=== PATIENT | female | born 1990 | race Two or more races ===

== ENCOUNTER 2024-10-31 13:56 | Emergency (ER) | payer MEDICAID, SELFPAY ==
--- NOTE | 2024-10-31 14:07 | PD.EDRME ---
Rapid Medical Screening Exam [facility] Arrival date/time: 10/31/24 13:56 34-year-old female with no known medical history presents to the emergency room with a chief complaint of diarrhea x 4 days as well as bright red blood in the stool. I have greeted and performed a focused initial assessment of this patient. A comprehensive ED assessment and evaluation of the patient, analysis of all test results, and completion of the medical decision making process will be conducted by additional ED providers. Chief Complaint: Abdominal Pain Vital signs reviewed by provider: Yes
[2024-10-31 14:09] VITALS: BP 114/80; PULSE 106; RESP 16; TEMP 37.2; O2SAT 98; BMI 38.0
[2024-10-31 14:30] LABS: Basophils # (Auto) 0.1 Thou/mm3 (0.0-0.2); Basophils % (Auto) 1 % (0-2.5); Eosinophils # (Auto) 0.4 Thou/mm3 (0.0-0.5); Eosinophils % (Auto) 4 % (0-10); Hematocrit 37.6 % (36.0-46.0); Hemoglobin 12.9 g/dL (12.0-16.0); Immature Granulocytes % (Auto) 0 % (0-0); Immature Granulocytes Auto 0.02 Thou/mm3 (0.00-0.00); Lymphocytes # (Auto) 1.4 Thou/mm3 (1.0-4.8); Lymphocytes % (Auto) 17 % (10-50); Mean Corpuscular HGB Conc 34.3 g/dl (31.0-37.0); Mean Corpuscular Hemoglobin 28.2 pg (25.0-35.0); Mean Corpuscular Volume 82 fL (80-100); Monocytes % (Auto) 13 % (0-12); Neutrophils # (Auto) 5.3 Thou/mm3 (1.8-7.7); Neutrophils % (Auto) 65 % (37-80); Nucleated Red Blood Cell % 0 /100 WBC (0); Platelet Count 338 Thou/mm3 (140-440); RDW Standard Deviation 52.2 fL (36.4-46.3); Red Blood Count 4.58 Miln/mm3 (4.00-5.20); White Blood Count 8.1 Thou/mm3 (3.6-11.0)
[2024-10-31] MEDS: ONDANSETRON ODT 4 MG TABRAP PO (14:32)
[2024-10-31 14:53] LABS: Alanine Aminotransferase 49 U/L (10-49); Albumin, Serum 4.3 gm/dL (3.5-5.0); Albumin/Globulin Ratio 1.5 (1.2-2.2); Alkaline Phosphatase 95 U/L (46-116); Anion Gap 8 (7-16); Aspartate Amino Transferase 39 U/L (0-34); BUN/Creatinine Ratio 9 Ratio (12-20); Bilirubin,Total 0.2 mg/dL (0.3-1.2); Blood Urea Nitrogen 6 mg/dL (9-23); Calcium 9.3 mg/dL (8.3-10.6); Calcium (Corrected) 9.3 mg/dL (8.5-10.1); Carbon Dioxide 26.6 mMol/L (20.0-31.0); Chloride 106 mMol/L (98-107); Creatinine (Component) 0.7 mg/dL (0.6-1.3); Estimated Creatinine Clearance 93.5 mL/min (>60); Globulin 2.9 gm/dL (2.3-3.5); Glucose 99 mg/dL (74-106); Lipase 30 U/L (12-53); Osmolality,Calculated 278 (275-295); Potassium 3.6 mMol/L (3.4-5.1); Sodium 141 mMol/L (136-145); Total Protein 7.2 gm/dL (5.7-8.2); eGFR > 60 See Note
[2024-10-31 15:54] LABS: Collection Type, Urine Clean Catch
[2024-10-31 16:01] LABS: Bilirubin,Urine Negative (Negative); Blood,Urine Trace (Negative); Clarity,Urine Turbid (Clear/Hazy); Color,Urine Yellow (Lt Yel-Yel); Glucose, Urine Negative (Negative); Ketones,Urine Negative (Negative); Leukocyte Esterase,Urine Negative (Negative); Nitrite,Urine Negative (Negative); Protein,Urine 1+ (Neg - Trace); RBC,Urine 3 /hpf (0-3); Specific Gravity,Urine 1.028 (1.001-1.035); Squamous Epithelial Cell,Urine 11 /hpf (0-5); Urobilinogen,Urine Negative mg/dL (0.0-1.0); WBC,Urine 4 /hpf (0-5)
[2024-10-31 16:02] LABS: HCG Qualitative,Urine Negative
[2024-10-31 16:49] VITALS: BP 125/89; PULSE 94; RESP 16; TEMP 37.1; O2SAT 100
--- NOTE | 2024-10-31 17:16 | PD.EDADULT ---
ED General RME/HPI General Chief complaint: Abdominal Pain Stated complaint: ABDOMINAL PAIN WITH BLOODY STOOL Time Seen by Provider: 10/31/24 17:07 Arrival date/time: 10/31/24 13:56 CC: Nausea diarrhea onset 4 days ago now starting to have bright red blood in the stool. Patient also has mild epigastric pain OTC medicines taken denies any chest pain, chills shortness of breath. Patient states she had a fever of 101.4 previously. No recent antibiotics. No other complaints no other family members are ill. RME / HPI RME / HPI narrative: 10/31/24 13:56 34-year-old female with no known medical history presents to the emergency room with a chief complaint of diarrhea x 4 days as well as bright red blood in the stool. I have greeted and performed a focused initial assessment of this patient. A comprehensive ED assessment and evaluation of the patient, analysis of all test results, and completion of the medical decision making process will be conducted by additional ED providers. Related Data Home Medications ?Medication ?Instructions ?Recorded ?Confirmed cetirizine 10 mg tablet 1 tab PO DAILY 01/12/22 01/12/22 fluticasone propionate 110 2 puff inhalation BID 01/12/22 01/12/22 mcg/actuation HFA aerosol inhaler (Flovent HFA) levonorgestrel 0.15 mg-ethinyl 1 tab PO DAILY 01/12/22 01/12/22 estradiol 0.03 mg tablet Previous Rx's ?Medication ?Instructions ?Recorded tramadol 37.5 mg-acetaminophen 325 1 tab PO TID #15 tabs 01/13/22 mg tablet (Ultracet) ibuprofen 600 mg tablet (IBU) 600 mg PO TID PRN pain #30 tabs 02/22/23 ciprofloxacin HCl 500 mg tablet 500 mg PO BID #10 tabs 10/31/24 (Cipro) dicyclomine 20 mg tablet 20 mg PO BID #10 tabs 10/31/24 ondansetron 4 mg disintegrating 4 mg PO Q8H #10 tabs 10/31/24 tablet Allergies Allergy/AdvReac Type Severity Reaction Status Date / Time No Known Allergies Allergy Verified 10/31/24 14:01 Review of Systems Review of Systems Narrative Review of Systems: GEN: No fever, no chills, no weight loss EYES: No discharge, no visual changes, no pain HEENT: No ear pain, no congestion, no sore throat PULM: No shortness of breath, no cough, no congestion CV: No chest pain, no dyspnea on exertion, no palpitations GI: + nausea, no vomiting, + diarrhea, no pain, no constipation : No frequency, no urgency, no dysuria MUSC/SKEL: No joint pain, no back pain SKIN: No rash PSYCH: No hallucinations, no depression HEME/LYMPH: No easy bleeding or bruising tendencies NEURO: No weakness, no headache Past Medical History Past Medical History NEUROLOGIC: Positive Migraine CARDIAC: Negative Cardiac Disorders or Congestive Heart Failure RESPIRATORY: Negative Chronic Obstructive Pulmonary Disease (COPD) or Asthma GENITOURINARY: Negative Renal Disease ENDOCRINE: Negative Diabetes Mellitus Type 1 or Diabetes Mellitus Type 2 HEMATOLOGIC: Negative Sickle Cell Disease Surgical History SURGICAL: Positive Section Social History SMOKING STATUS: Never smoker SECOND HAND EXPOSURE: No SUBSTANCE USE: does not use ED Exam Narrative Physical exam: [General: Obese not in any acute distress Head normocephalic HEENT: Within acceptable limits Neck is supple nontender Chest equal chest rise nontender to palpation Respiratory: Clear to auscultation no wheezes crackles or rubs CV: Rate rhythm is regular no murmurs rubs or clicks Abdomen is distended secondary to body habitus soft, mild epigastric pain with tenderness no reflexive guarding no rebound tenderness. No masses positive bowel sounds all 4 quadrants Back: No CVA tenderness no spinous process tenderness from cervical spine thoracic and lumbar spine Skin: Intact no petechiae rash induration ulceration or crepitus Extremities: Moving all extremity against resistance cap refill less than 2 seconds neurosensory intact Neuro: Awake alert oriented x3 Glascow coma 15 no focal deficits] Course Quality Measures none Orders Category Date Time Status Occult Blood,Stool (Nursing) ONCE Care 10/31/24 14:07 Active CBC Stat Lab 10/31/24 14:24 Completed CMP [Comprehensive Metabolic Panel] Stat Lab 10/31/24 14:24 Completed HCG Qualitative,Urine Stat Lab 10/31/24 15:20 Completed Lipase Stat Lab 10/31/24 14:24 Completed UA [Urinalysis] Stat Lab 10/31/24 15:20 Completed Urine Culture Stat Lab 10/31/24 14:06 Received Ondansetron Odt [Zofran Odt] Med 10/31/24 14:06 Discontinued 4 mg PO X1 ONE Vital Signs Vital signs: Vital Signs Temperature 98.9 F 10/31/24 14:09 Pulse Rate 106 H 10/31/24 14:09 Respiratory Rate 16 10/31/24 14:09 Blood Pressure 114/80 10/31/24 14:09 Pulse Oximetry (%) 98 10/31/24 14:09 Oxygen Delivery Method Room Air 10/31/24 14:09 MDM Patient data External records reviewed:: [facility] previous records Clinical information provided by:: patient Social determinants that could affect healthcare access:: none Patient has the following chronic illnesses:: Obesity How is presenting disease/condition affected by chronic disease/condition?: uneffected by Evaluation data The following diagnostics were reviewed and interpreted by me:: lab results Lab and/or radiology exams considered but not ordered:: CBC shows no leukocytosis anemia thrombocytopenia CMP shows the patient has no significant electrolyte imbalances renal impairment transaminitis or T. bili elevation Urine is turbid 11 squamous epithelia. Lipase is negative Interpretation Summary: Given the patient's clinical presentation I suspect the patient has mild gastritis, the bleeding may be from a mild diverticulitis. Patient will be discharged home with several medications for treatment of the diverticulitis. Medications Medications considered but not ordered:: None Medication administrations:: Medication Administration History Discontinued Medications Ondansetron HCl (Ondansetron Odt 4 Mg Tabrap) 4 mg PO X1 ONE; Protocol Stop: 10/31/24 14:07 Last Admin: 10/31/24 14:32 Dose: 4 mg Documented By: None Consultations Consultation(s) initiated? (list below): No Diagnosis Differential Diagnosis ED Complaint MDM: Gastritis diverticulitis diverticulosis ileus Most likely diagnosis given after review of the tests above:: Gastritis/diverticulitis Admission Indicated Admission indicated?: not indicated Explain why admission is indicated or not indicated:: Stable for outpatient follow-up Admission Request Was there a request for admission?: No Disposition Plan Disposition Plan: Discharge Discharge Attestation Discharge Attestation: The patient and all family members were given an opportunity to ask questions and understood the discharge instructions. Discharge instructions specifically effects, indications for sooner follow up or return to the emergency department, and the expected course of current diagnosis. Patient condition: Stable Medical Decision Making Differential Diagnosis Differential Diagnosis: Gastritis diverticulitis diverticulosis ileus Lab Data 10/31/24 14:24 10/31/24 14:24 Labs: Lab Results 10/31/24 10/31/24 Range/Units 14:24 15:20 WBC 8.1 (3.6-11.0) Thou/mm3 RBC 4.58 (4.00-5.20) Miln/mm3 Hgb 12.9 (12.0-16.0) g/dL Hct 37.6 (36.0-46.0) % MCV 82 (80-100) fL MCH 28.2 (25.0-35.0) pg MCHC 34.3 (31.0-37.0) g/dl RDW Std Deviation 52.2 H (36.4-46.3) fL Plt Count 338 (140-440) Thou/mm3 Neut % (Auto) 65 (37-80) % Lymph % (Auto) 17 (10-50) % [place]mullen % (Auto) 13 H (0-12) % Eos % (Auto) 4 (0-10) % Baso % (Auto) 1 (0-2.5) % Neut # (Auto) 5.3 (1.8-7.7) Thou/mm3 Lymph # (Auto) 1.4 (1.0-4.8) Thou/mm3 [place]ullen # (Auto) 1.0 H (0.0-0.8) Thou/mm3 Eos # (Auto) 0.4 (0.0-0.5) Thou/mm3 Baso # (Auto) 0.1 (0.0-0.2) Thou/mm3 Immature Gran # (Auto) 0.02 H (0.00-0.00) Thou/mm3 Absolute Nucleated RBC 0.00 (0.00-0.00) Thou/mm3 Immature Gran % 0 (0-0) % Nucleated RBC % 0 (0) /100 WBC Sodium 141 (136-145) mMol/L Potassium 3.6 (3.4-5.1) mMol/L Chloride 106 (98-107) mMol/L Carbon Dioxide 26.6 (20.0-31.0) mMol/L Anion Gap 8 (7-16) BUN 6 L (9-23) mg/dL Creatinine 0.7 (0.6-1.3) mg/dL Estim Creat Clear Calc 93.5 (>60) mL/min eGFR > 60 (60 - ) See Note BUN/Creatinine Ratio 9 L (12-20) Ratio Glucose 99 (74-106) mg/dL Calculated Osmolality 278 (275-295) Calcium 9.3 (8.3-10.6) mg/dL Corrected Calcium 9.3 (8.5-10.1) mg/dL Total Bilirubin 0.2 L (0.3-1.2) mg/dL AST 39 H (0-34) U/L ALT 49 (10-49) U/L Alkaline Phosphatase 95 (46-116) U/L Total Protein 7.2 (5.7-8.2) gm/dL Albumin 4.3 (3.5-5.0) gm/dL Globulin 2.9 (2.3-3.5) gm/dL Albumin/Globulin Ratio 1.5 (1.2-2.2) Lipase 30 (12-53) U/L Ur Collection Type Clean Catch Urine Color Yellow (Lt Yel-Yel) Urine Clarity Turbid A (Clear/Hazy) Urine pH 6.0 (5.0-7.0) Ur Specific [place] 1.028 (1.001-1.035) Urine Protein 1+ A (Neg - Trace) Urine Glucose (UA) Negative (Negative) Urine Ketones Negative (Negative) Urine Blood Trace (Negative) Urine Nitrite Negative (Negative) Urine Bilirubin Negative (Negative) Urine Urobilinogen (Auto) Negative (0.0-1.0) mg/dL Ur Leukocyte Esterase Negative (Negative) Urine RBC 3 (0-3) /hpf Urine WBC 4 (0-5) /hpf Ur Squamous Epith Cells 11 H (0-5) /hpf Urine Bacteria None (None) Urine HCG, Qual Negative Discharge Plan Plan Patient Disposition: HOME (Self Care) Patient condition on transfer: Stable Prescriptions/Referrals Prescriptions/Med Rec: New ondansetron 4 mg tablet,disintegrating 4 mg PO Q8H Qty: 10 0RF dicyclomine 20 mg tablet 20 mg PO BID Qty: 10 0RF ciprofloxacin HCl [Cipro] 500 mg tablet 500 mg PO BID Qty: 10 0RF No Action levonorgestrel-ethinyl estrad 0.15-0.03 mg tablet 1 tab PO DAILY Patient Comments: take 1 tablet by mouth once daily fluticasone propionate [Flovent HFA] 110 mcg/actuation HFA aerosol inhaler 2 puff INHALATION BID Patient Comments: inhale 2 puffs by mouth and INTO THE LUNGS twice a day cetirizine 10 mg tablet 1 tab PO DAILY Patient Comments: take 1 tablet by mouth once daily tramadol-acetaminophen [Ultracet] 37.5-325 mg tablet 1 tab PO TID Qty: 15 0RF ibuprofen [IBU] 600 mg tablet 600 mg PO TID PRN (Reason: pain) Qty: 30 0RF Referrals: Scooby Gutierrez MD [Primary Care Provider] - In 1 week Problem List Clinical Impression: Diarrhea, Abdominal pain, Nausea Patient/Caregiver Discharge Instructions Other Activity Instructions:: I suspect diverticulitis please take the medications as prescribed a bland diet follow-up with your primary care doctor if there is worsening of symptoms spite of medications return the emergency room medially for further evaluation. Education Materials: Abdominal Pain, ED Diet, [place] (Adult), ED Diarrhea, Unknown Cause Print Language: Danish Stand Alone Forms: Trixie Award Info., Patient Portal Info Letter, Work/School Release PA/AIRPLANE ENGINEER Supervising Physician ANNAMARIE/AIRPLANE ENGINEER Supervising Physician: Tacos Yap ENP
== END 2024-10-31 17:31 | disposition home or self-care (01) ==
PROVIDERS: Nurse Practitioner Family; Emergency Provider Family Medicine; PCP Family Medicine
DX: R10.13 Epigastric pain (principal); R19.7 Diarrhea, unspecified; R11.0 Nausea
CPT/HCPCS: 36415; 80053; 81001; 81025; 83690; 85025; 87086; 99283; Q0162

== ENCOUNTER 2024-12-01 09:25 | Day surgery (SDC) | payer MEDICAID, SELFPAY ==
[2024-11-30 07:10] VITALS: BMI 39.6
[2024-11-30 09:27] LABS: Basophils # (Auto) 0.1 Thou/mm3 (0.0-0.2); Basophils % (Auto) 1 % (0-2.5); Eosinophils # (Auto) 0.4 Thou/mm3 (0.0-0.5); Eosinophils % (Auto) 5 % (0-10); Hematocrit 35.6 % (36.0-46.0); Hemoglobin 11.9 g/dL (12.0-16.0); Immature Granulocytes % (Auto) 0 % (0-0); Immature Granulocytes Auto 0.02 Thou/mm3 (0.00-0.00); Lymphocytes # (Auto) 1.7 Thou/mm3 (1.0-4.8); Lymphocytes % (Auto) 19 % (10-50); Mean Corpuscular HGB Conc 33.4 g/dl (31.0-37.0); Mean Corpuscular Hemoglobin 29.2 pg (25.0-35.0); Mean Corpuscular Volume 88 fL (80-100); Monocytes # (Auto) 0.5 Thou/mm3 (0.0-0.8); Monocytes % (Auto) 5 % (0-12); Neutrophils % (Auto) 69 % (37-80); Nucleated Red Blood Cell % 0 /100 WBC (0); Platelet Count 338 Thou/mm3 (140-440); RDW Standard Deviation 48.7 fL (36.4-46.3); Red Blood Count 4.07 Miln/mm3 (4.00-5.20); White Blood Count 8.7 Thou/mm3 (3.6-11.0)
[2024-11-30 10:03] LABS: Beta HCG,Quantitative < 1 mIU/mL (<5.0)
[2024-11-30 10:10] LABS: Hepatitis A Antibody IgM Non Reactive (Non React); Hepatitis B Core Antibody IgM Non Reactive (Non React); Hepatitis B Surface Antigen Non Reactive (Non React); Hepatitis C Antibody Non Reactive (Non React)
[2024-11-30 11:12] LABS: HIV (1&2) Antibody Rapid Non-Reactive
--- NOTE | 2024-11-30 14:45 | SUR.PREOP ---
Voice message left for pt to come in at 0930 tomorrow.
[2024-12-01] VITALS (7 sets, daily range): BP systolic 116–127; BP diastolic 65–89; PULSE 65–77; RESP 12–20; TEMP 36.2–36.8; O2SAT 98–100; BMI 35.6
--- NOTE | 2024-12-01 08:51 | PD.GYNHP ---
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 SON is a 34 year old female para 1 previous is admitted for a diagnostic hysteroscopy related to her abnormal uterine bleeding starting after the . Patient had an ultrasound which showed a small fibroid however there were no other abnormalities found patient also is desiring a and has been unable to conceive so does not want to take any hormonal contraception at this point to decrease the abnormal uterine bleeding. Diagnosis hysteroscopy was planned in anticipation of finding endometrial polyp which could contribute to her abnormal and heavy menses. Meds Home Medications and Allergies Home Medications ?Medication ?Instructions ?Recorded ?Confirmed ?Type albuterol sulfate 90 mcg/actuation 2 puff inhalation Q4H PRN 11/30/24 11/30/24 History aerosol inhaler shortness of breath or wheezing azelastine 137 mcg (0.1 %) nasal 2 spray intranasal Q12H 11/30/24 11/30/24 History spray montelukast 10 mg tablet 10 mg PO HS 11/30/24 11/30/24 History omeprazole 40 mg capsule,delayed 40 mg PO DAILY 11/30/24 11/30/24 History release prednisone 20 mg tablet 20 mg PO DAILY 11/30/24 11/30/24 History Allergies Allergy/AdvReac Type Severity Reaction Status Date / Time No Known Allergies Allergy Verified 11/30/24 07:11 Exam - 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 INSTRUCTOR Constitutional Constitutional: no acute distress Routine HEENT Exam Head: Present normocephalic and atraumatic Eye: Present EOMI and PERRL ENT: Present mucous membranes moist Routine Neck Exam Neck: Present supple and trachea midline Routine Respiratory Exam Respiratory: Present chest non-tender, lungs clear, normal breath sounds and no resp distress Routine Cardiovascular Exam Cardiovascular: Present RRR Routine Abdominal Exam Abdominal: Present soft and normoactive bowel sounds Routine Extremities Exam Extremities: Present full ROM Routine Skin Exam Skin: Present intact and dry Routine Neurological Exam Neurological: Present alert, oriented X3 and CN II-XII intact Routine Psychiatric Exam Psychiatric: Present normal affect and normal thought process ADJUNCT POLITICAL SCIENCE INSTRUCTOR - Results Labs 11/30/24 07:35 Labs: Short CBC 11/30/24 Range/Units 07:35 WBC 8.7 (3.6-11.0) Thou/mm3 Hgb 11.9 L (12.0-16.0) g/dL Hct 35.6 L (36.0-46.0) % Plt Count 338 (140-440) Thou/mm3 Impressions Impression: 34-year-old para 1 admitted for diagnostic hysteroscopy for abnormal uterine bleeding Ultrasound normal Quality Measures Quality Measures VTE prophylaxis
[2024-12-01] MEDS: RINGERS LACTATED 1000 ML 1,000 ML 20 ML IV (10:05)
--- NOTE | 2024-12-01 10:50 | PD.GYNPROC ---
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 The potential benefits and risks of the procedure, the likelihood of success, and the problems related to recuperation have been discussed with patient who agrees to proceed. The possible results of nontreatment and significant alternatives to the proposed procedure have also been explained, along with the risks and benefits of the alternatives. Risks and benefits of chosen anesthetic/sedation and possible use of blood/blood products (if appropriate) were discussed.The patient was identified as Usha Reyes and the procedure verified. A time out was held reviewing the patient identifiers, procedure planned and allergies. At this point the procedure was begun. The patient was positioned and prepped in routine fashion in the dorsal lithotomy position using yellowfin stirups. On examination under anesthesia,the uterus was retroverted to a normal size. Bladder was drained by catheter. A weighted speculum was then placed into the patient's posterior vagina. A rick was used to expose the anterior lip of the cervix which was then grasped by a single tooth tenaculum.The cervix was then very easily dilated to a size 6 Hegar dilator. The hysteroscope was then placed under direct visualization. Warm lactated Ringer's was used as a distention medium. The patient's uterus was found to have a normal endometrial cavity with normal bilateral ostia visible . pictures were taken. Hysteroscope was removed from the cavity. There was minimal bleeding noted and tenaculum was removed. Hemostasis was acheived with a ringed forcep on the anterior cervix. Surgical staff Operation Date: 12/01/24 11:45 <No data on this case meets the specified criteria> Diagnosis Problem List Completed Was Problem List Reviewed/Reconciled?: Yes
--- NOTE | 2024-12-01 10:57 | SUR.PHASEI ---
1057 Patient arrived to recovery resting comfortably in [facility], on oxygen 8L via oxy mask, breathing unlabored, vital signs stable, denies pain and nausea, report received from Geo BREWER/Jen ABDALLA and Alpesh NOGUERA
--- NOTE | 2024-12-01 11:58 | SUR.PHASEII ---
1158 Patient meets discharge criteria from recovery, awake and alert-talking with staff, breathing unlabored, vital signs stable, denies pain, voided in the restroom prior to discharge, denies nausea-eating ice chips; tolerating well, discharge instructions given to patient and patients mother with the assistance of the telephone lathe machine operator Kierra ID#[id number], mother signed discharge instructions. Patient given all her belongings prior to discharge, transported via wheelchair and left in a private vehicle.
== END 2024-12-01 11:58 | disposition home or self-care (01) ==
PROVIDERS: PCP Family Medicine; Referring Provider Student in an Organized Health Care Education/Training Program; Visit Provider Student in an Organized Health Care Education/Training Program
PROC: (CPT 49320; principal; 2024-12-01 11:30)
DX: N92.0 Excessive and frequent menstruation with regular cycle (principal)
CPT/HCPCS: 58555; 36415; 80074; 84702; 85025; 86703; 86850; 86900; 86901; A4217; A4649; J0131; J1100; J2250; J2405; J2704; J3010; J3490; J7120

== ENCOUNTER 2025-01-09 16:38 | Emergency (ER) | payer MEDICAID, SELFPAY ==
[2025-01-09 16:56] VITALS: BP 117/81; PULSE 74; RESP 18; TEMP 36.8; O2SAT 99; BMI 34.0
--- NOTE | 2025-01-09 17:27 | EDNOTE_ITS ---
ED General RME/HPI General Chief complaint: General Adult/Misc Complain Stated complaint: SWOLLEN LABIA X 3 DAYS; HURTS TO WALK/SIT Time Seen by Provider: 01/09/25 17:05 Arrival date/time: 01/09/25 16:38 RME / HPI RME / HPI narrative: 34-year-old female presents to the ED with a complaint of bilateral labial swelling for the past 3 days. It started with right lower extremity pain, she thought her underwear were too tight. Last night she felt feverish and chilled. She went to [facility] yesterday and was told there was nothing wrong. Related Data Home Medications ?Medication ?Instructions ?Recorded ?Confirmed albuterol sulfate 90 mcg/actuation 2 puff inhalation Q 4H PRN 11/30/24 12/01/24 aerosol inhaler shortness of breath or wheez ing azelastine 137 mcg (0.1 %) nasal 2 spray intranasal Q1 2H 11/30/24 12/01/24 spray montelukast 10 mg tablet 10 mg PO HS 11/30/24 5 omeprazole 40 mg capsule,delayed 40 mg PO DAILY 11/30/24 release prednisone 20 mg tablet 20 mg PO DAILY 11/30/2402/18 Previous Rx's ?Medication ?Instructions ?Recorded amoxicillin 875 mg tablet 875 mg PO BID #20 tabs 01/09 benzocaine 5 %-resorcinol 2 % 1 applic topical TID PRN skin 01/09/25 topical cream (Vagisil) irritation #28 grams hydrocortisone 1 % topical cream 1 applic topical TID PRN skin 01/09/25 irritation #28.4 grams Allergies Allergy/AdvReac Type Severity Reaction Status Date / Time No Known Allergies Allergy Verified 01/09/25 16:44 Review of Systems Review of Systems Systems Reviewed: All systems reviewed, normal except as documented Past Medical History Past Medical History NEUROLOGIC: Positive Neurological Disorders and Migraine; Negative Seizures CARDIAC: Negative Cardiac Disorders or Congestive Heart Failure RESPIRATORY: Positive Asthma; Negative Chronic Obstructive Pulmonary Disease (COPD) GASTROINTESTINAL: Positive Gastrointestinal Disorders and Obesity; Negative Hepatitis GENITOURINARY: Negative Genitourinary Disorders or Renal Disease REPRODUCTIVE: Positive Previous Pregnancies MUSCULOSKELETAL: Negative Musculoskeletal Disorders ENDOCRINE: Negative Endocrine Disorders, Diabetes Mellitus Type 1 or Diabetes Mellitus Type 2 HEMATOLOGIC: Positive Blood Disorders and Anemia; Negative Sickle Cell Disease OTHER HISTORY: Positive Blood Transfusions; Negative Hospitalization, Autoimmune Disease, Shingles, Falls, Blood Transfusion Reaction, Anesthesia Reactions or Cancer Family History FAMILY HISTORY: Negative Family Psychiatric Problems, Family Respiratory Disorders, Family Cardiac Disorders, Family Gastrointestinal Problems, Family Cancer, Family Surgery or Family Anesthesia Reaction Surgical History SURGICAL: Positive Section (x1) Social History SMOKING STATUS: Never smoker SECOND HAND EXPOSURE: No SUBSTANCE USE: does not use ED Exam Narrative Physical exam: 34-year-old female, no acute distress. Lungs are clear, regular rate and rhythm without murmurs, abdomen is soft and nontender. No CVA tenderness. Pelvic exam with orthodontic technician assistant present reveals mild swelling to the left upper labia. No Bartholin's abscess noted. No erythema or cellulitis noted. Mild left greater saphenous vein tenderness extending to the left inguinal area. Course Course Course Narrative: Patient was given Toradol 30 mg IM. Venous duplex of the bilateral lower extremities obtained and revealed: Negative for acute deep vein thrombosis , per radiologist. Patient was given her first dose of Augmentin 875 mg p.o. Quality Measures none Orders Category Date Time Status US venous duplex LE BI Stat Exams 01/09/25 18:26 Completed Amoxicillin/Pot Clav 875 [Augmentin 875] Med 01/09/25 21:18 Discontinued 1 tab PO X1 ONE Ketorolac Inj [Toradol Inj] Med 01/09/25 18:26 Discontinued 30 mg IM X1 ONE Vital Signs Vital signs: Vital Signs Temperature 98.3 F 01/09/25 16:56 Pulse Rate 74 01/09/25 16:56 Respiratory Rate 18 01/09/25 16:56 Blood Pressure 117/81 01/09/25 16:56 Pulse Oximetry (%) 99 01/09/25 16:56 Oxygen Delivery Method Room Air 01/09/25 16:56 Discharge Plan Plan Patient Disposition: HOME (Self Care) Discharge Disposition comment: Stable Prescriptions/Referrals Prescriptions/Med Rec: New amoxicillin 875 mg tablet 875 mg PO BID Qty: 20 0RF hydrocortisone 1 % cream 1 applic topical TID PRN (Reason: skin irritation) Qty: 28.4 0RF Vagisil 5-2 % cream 1 applic topical TID PRN (Reason: skin irritation) Qty: 28 0RF No Action omeprazole 40 mg capsule,delayed release(DR/EC) 40 mg PO DAILY Patient Comments: take 1 capsule by mouth every morning prednisone 20 mg tablet 20 mg PO DAILY Patient Comments: take 2 tablets by mouth every morning montelukast 10 mg tablet 10 mg PO HS Patient Comments: take 1 tablet by mouth every evening azelastine 137 mcg (0.1 %) spray,non-aerosol 2 spray INTRANASAL Q12H Patient Comments: instill 2 sprays into each nostril twice a day albuterol sulfate 90 mcg/actuation HFA aerosol inhaler 2 puff INHALATION Q4H PRN (Reason: shortness of breath or wheezing) Patient Comments: inhale 2 puffs by mouth and INTO THE LUNGS every 4 hours if needed Referrals: Scooby Gutierrez MD [Primary Care Provider] - In 1 week Problem List Clinical Impression: Labial irritation, Labial hypertrophy, Inguinal lymphadenopathy Patient/Caregiver Discharge Instructions Education Materials: Lymphadenopathy Additional Instructions: [place] los antibioticos hill lo prescrito y complete elcurso a pesar de que puede sentirse major. Sheeren un seguimiento con hu medico de atencion primaria en 24 a 48 horas. Regresar al departamento de emergencias por cualquier sintoma nuevo o que empeore. Print Language: Jordanian Stand Alone Forms: Trixie Award Info., Patient Portal Info Letter PA/HEATING FIXTURE TENDER Supervising Physician PA/CAM Supervising Physician: Dr Therese CHAN Narrative [facility] hospital course: 34-year-old female presents to the ED with a complaint of bilateral labial swelling for the past 3 days. It started with right lower extremity pain, she thought her underwear were too tight. Last night she felt feverish and chilled. She went to [facility] yesterday and was told there was nothing wrong. 34-year-old female, no acute distress. Lungs are clear, regular rate and rhythm without murmurs, abdomen is soft and nontender. No CVA tenderness. Pelvic exam with orthodontic technician assistant present reveals mild swelling to the left upper labia. No Bartholin's abscess noted. No erythema or cellulitis noted. Mild left greater saphenous vein tenderness extending to the left inguinal area. Patient was given Toradol 30 mg IM. Venous duplex of the bilateral lower extremities obtained and revealed: Negative for acute deep vein thrombosis , per radiologist. Patient was given her first dose of Augmentin 875 mg p.o. Procedures done or offered: Venous duplex bilateral lower extremities. Clinical Information Provided by patient Medical Records Reviewed [facility] Meds/Rx Considered, not Ordered None Labs/Rad/Tests considered, not Ordered None Chronic Illness/Social Conditions which may negatively complicate care or outcome(s)-explain: None or not applicable EKG EKG not done Lab Interpretation Labs: none Imaging Imaging interpretation: see narrative above Provider imaging interpretation(s): Venous duplex lower extremity sonogram bilateral: Findings deep venous systems do not demonstrate abnormal echogenicity. All visualized deep veins exhibit compressibility and augmentation. Impression: Negative for deep vein thrombosis. Radiology reports / interpretation(s): As above Medication Administration(s) Medication Administration History Discontinued Medications Amoxicillin/Clavulanate Potassium (Amoxicillin/Pot Clav 875 Tablet) 1 tab PO X1 ONE Stop: 01/09/25 21:19 Last Admin: 01/09/25 21:34 Dose: 1 tab Documented By: ANN Ketorolac Tromethamine (Ketorolac Inj 60 Mg/2 Ml Vial) 30 mg IM X1 ONE Stop: 01/09/25 18:27 Last Admin: 01/09/25 18:50 Dose: 30 mg Documented By: ANN Toradol 30 mg IM and Augmentin 875 mg p.o. Diagnosis Differential diagnosis: Bartholin gland cyst, labial inflammation, inguinal adenitis, LE DVT Differential dx and/or dx ruled out: Negative Bartholin gland cyst, lower extremity DVT Most likely dx, and/or detailed dx discussion: Labial inflammation Dispositon Disposition: Discharge Home Disposition comments: Patient is stable for discharge
--- NOTE | 2025-01-09 18:26 | XR_ITS ---
Examination: Venous duplex lower extremity sonogram, bilateral. Date and time of exam: January 09, 2025 2000 hours INDICATIONS: Right leg swelling and pain beginning 3 days ago Technique: Multiple sonographic images of the deep venous system have been obtained. B-mode/2-D grayscale imaging of vascular structures and Doppler spectral analysis (waveforms) and color performed Both legs are examined. Findings: Deep venous systems do not demonstrate abnormal echogenicity. All visualized deep veins exhibit compressibility. All visualized deep veins exhibit augmentation. Impression: Negative for deep vein thrombosis
[2025-01-09] MEDS: KETOROLAC INJ 60 MG/2 ML VIAL 30 MG IM (18:50)
[2025-01-09] MEDS: AMOXICILLIN/POT CLAV 875 TABLET 1 TAB PO (21:34)
[2025-01-09 21:36] VITALS: BP 120/78; PULSE 78; RESP 18; TEMP 36.8; O2SAT 98
== END 2025-01-09 21:38 | disposition home or self-care (01) ==
PROVIDERS: Emergency Provider Family Medicine; PCP Family Medicine
DX: N90.60 Unspecified hypertrophy of vulva (principal); R59.0 Localized enlarged lymph nodes; M79.89 Other specified soft tissue disorders; M79.661 Pain in right lower leg
CPT/HCPCS: 93970; 96372; 99284; J1885; A9270

== ENCOUNTER 2025-06-05 20:45 | Emergency (ER) | payer MEDICAID, SELFPAY ==
[2025-06-05 21:35] VITALS: BP 124/81; PULSE 96; RESP 20; TEMP 36.9; O2SAT 100
--- NOTE | 2025-06-05 21:41 | XR_ITS ---
Examination: Transvaginal ultrasound of the pelvis, complete Technique: Transvaginal sonographic images pelvis performed using sanchez scale imaging Exam date and time: June 05, 2025 1050 hours INDICATIONS: Vaginal bleeding episodes beginning 2 months ago FINDINGS: Uterus 8.8 cm endometrial stripe 0.6 cm 14 x 15 mm uterine area fibroid degeneration, right uterine body area fibroid degeneration 15 x 16 mm Ovaries obscured by bowel gas IMPRESSION: Small areas of uterine fibroid degeneration, 6-month follow-up pelvic sonography recommended.
--- NOTE | 2025-06-05 21:42 | PD.EDRME ---
Rapid Medical Screening Exam RME Arrival date/time: 06/05/25 20:45 This is a case of 34-year-old female came into the emergency room due to vaginal bleeding and pelvic cramping for 2 days persistence of the symptoms this patient decided to start consult here in the emergency room Chief Complaint: Vaginal Bleeding Time Seen by Provider: 06/05/25 21:41 Vital signs: Vital Signs Temperature 98.4 F 06/05/25 21:35 Pulse Rate 96 06/05/25 21:35 Respiratory Rate 20 06/05/25 21:35 Blood Pressure 124/81 06/05/25 21:35 Pulse Oximetry (%) 100 06/05/25 21:35 Oxygen Delivery Method Room Air 06/05/25 21:35 Exam: Pelvic exam normal Clinical Impression: Vaginal bleeding
[2025-06-05 22:40] LABS: Basophils # (Auto) 0.1 Thou/mm3 (0.0-0.2); Basophils % (Auto) 1 % (0-2.5); Eosinophils # (Auto) 0.3 Thou/mm3 (0.0-0.5); Eosinophils % (Auto) 3 % (0-10); Hematocrit 27.4 % (36.0-46.0); Immature Granulocytes Auto 0.02 Thou/mm3 (0.00-0.00); Lymphocytes # (Auto) 1.9 Thou/mm3 (1.0-4.8); Lymphocytes % (Auto) 24 % (10-50); Mean Corpuscular HGB Conc 31.4 g/dl (31.0-37.0); Mean Corpuscular Hemoglobin 25.8 pg (25.0-35.0); Mean Corpuscular Volume 82 fL (80-100); Monocytes # (Auto) 0.8 Thou/mm3 (0.0-0.8); Monocytes % (Auto) 10 % (0-12); Neutrophils # (Auto) 5.0 Thou/mm3 (1.8-7.7); Neutrophils % (Auto) 62 % (37-80); Nucleated Red Blood Cell # 0.00 Thou/mm3 (0.00-0.00); Nucleated Red Blood Cell % 0 /100 WBC (0); Platelet Count 382 Thou/mm3 (140-440); RDW Standard Deviation 42.9 fL (36.4-46.3); Red Blood Count 3.33 Miln/mm3 (4.00-5.20); White Blood Count 8.0 Thou/mm3 (3.6-11.0)
[2025-06-05 23:02] LABS: Alanine Aminotransferase 42 U/L (10-49); Albumin, Serum 4.5 gm/dL (3.5-5.0); Albumin/Globulin Ratio 2.0 (1.2-2.2); Alkaline Phosphatase 98 U/L (46-116); Anion Gap 7 (7-16); Aspartate Amino Transferase 54 U/L (0-34); BUN/Creatinine Ratio 13 Ratio (12-20); Beta HCG,Quantitative < 1 mIU/mL (<5.0); Bilirubin,Total 0.2 mg/dL (0.3-1.2); Blood Urea Nitrogen 9 mg/dL (9-23); Calcium 8.9 mg/dL (8.3-10.6); Calcium (Corrected) 8.9 mg/dL (8.5-10.1); Carbon Dioxide 27.4 mMol/L (20.0-31.0); Chloride 107 mMol/L (98-107); Creatinine (Component) 0.7 mg/dL (0.6-1.3); Globulin 2.2 gm/dL (2.3-3.5); Glucose 100 mg/dL (74-106); Osmolality,Calculated 279 (275-295); Potassium 3.5 mMol/L (3.4-5.1); Sodium 141 mMol/L (136-145); Total Protein 6.7 gm/dL (5.7-8.2); eGFR > 60 See Note
[2025-06-05 23:08] LABS: Hemoglobin 8.6 g/dL (12.0-16.0)
[2025-06-05 23:35] VITALS: BP 125/86; PULSE 75; RESP 16; TEMP 36.8; O2SAT 100
[2025-06-06 01:53] LABS: Collection Type, Urine Voided
[2025-06-06 02:00] VITALS: BP 118/83; PULSE 79; RESP 16; TEMP 37.2; O2SAT 100
[2025-06-06 02:06] LABS: Bilirubin,Urine Negative (Negative); Blood,Urine 3+ (Negative); Clarity,Urine Clear (Clear/Hazy); Color,Urine Colorless (Lt Yel-Yel); Glucose, Urine Negative (Negative); Ketones,Urine Negative (Negative); Leukocyte Esterase,Urine Negative (Negative); Nitrite,Urine Negative (Negative); PH,Urine 6.5 (5.0-7.0); Protein,Urine Negative (Neg - Trace); RBC,Urine 1 /hpf (0-3); Specific Gravity,Urine 1.005 (1.001-1.035); Squamous Epithelial Cell,Urine < 1 /hpf (0-5); Urobilinogen,Urine Negative mg/dL (0.0-1.0); WBC,Urine < 1 /hpf (0-5)
--- NOTE | 2025-06-06 02:13 | PD.EDVAGBL ---
ED OB Contraction Preg RMI/HPI General Chief complaint: Vaginal Bleeding Stated complaint: BODYACHE, FATIGUE, CRAMPING TO R. LEG, VAG BLEED Time Seen by Provider: 06/05/25 21:41 Arrival date/time: 06/05/25 20:45 RME / HPI RME / HPI Narrative: 06/05/25 20:45 This is a case of 34-year-old female came into the emergency room due to vaginal bleeding and pelvic cramping for 2 days persistence of the symptoms this patient decided to start consult here in the emergency room Dr. Bailon?s Main ED Evaluation: 34yo female with a history of menstrual irregularity presenting with intermittent vaginal bleeding x 2-3 months. Patient reports using up to 4 pads per day and has associated abdominal cramping. Reports occasional blood clots. She recently finished prescribed course of Provera. PMH unremarkable. PSH includes . Unremarkable social history. NKA. Related Data Home Medications ?Medication ?Instructions ?Recorded ?Confirmed albuterol sulfate 90 mcg/actuation 2 puff inhalation Q4H PRN 11/30/24 12/01/24 aerosol inhaler shortness of breath or wheezing azelastine 137 mcg (0.1 %) nasal 2 spray intranasal Q12H 11/30/24 12/01/24 spray montelukast 10 mg tablet 10 mg PO HS 11/30/24 12/01/24 omeprazole 40 mg capsule,delayed 40 mg PO DAILY 11/30/24 11/30/24 release prednisone 20 mg tablet 20 mg PO DAILY 11/30/24 12/01/24 Previous Rx's ?Medication ?Instructions ?Recorded amoxicillin 875 mg tablet 875 mg PO BID #20 tabs 01/09/25 benzocaine 5 %-resorcinol 2 % 1 applic topical TID PRN skin 01/09/25 topical cream (Vagisil) irritation #28 grams hydrocortisone 1 % topical cream 1 applic topical TID PRN skin 01/09/25 irritation #28.4 grams docusate sodium 100 mg capsule 100 mg PO BID #30 caps 06/06/25 (Colace) ferrous sulfate 325 mg (65 mg 325 mg PO BID #60 tabs 06/06/25 iron) tablet (Feosol) Allergies Allergy/AdvReac Type Severity Reaction Status Date / Time No Known Allergies Allergy Verified 06/05/25 20:47 Review of Systems Review of Systems Systems Reviewed: All systems reviewed, normal except as documented Past Medical History Past Medical History NEUROLOGIC: Positive Neurological Disorders and Migraine; Negative Seizures CARDIAC: Negative Cardiac Disorders or Congestive Heart Failure RESPIRATORY: Positive Asthma; Negative Chronic Obstructive Pulmonary Disease (COPD) GASTROINTESTINAL: Positive Gastrointestinal Disorders and Obesity; Negative Hepatitis GENITOURINARY: Negative Genitourinary Disorders or Renal Disease REPRODUCTIVE: Positive Previous Pregnancies MUSCULOSKELETAL: Negative Musculoskeletal Disorders ENDOCRINE: Negative Endocrine Disorders, Diabetes Mellitus Type 1 or Diabetes Mellitus Type 2 HEMATOLOGIC: Positive Blood Disorders and Anemia; Negative Sickle Cell Disease OTHER HISTORY: Positive Blood Transfusions; Negative Hospitalization, Autoimmune Disease, Shingles, Falls, Blood Transfusion Reaction, Anesthesia Reactions or Cancer Family History FAMILY HISTORY: Negative Family Psychiatric Problems, Family Respiratory Disorders, Family Cardiac Disorders, Family Gastrointestinal Problems, Family Cancer, Family Surgery or Family Anesthesia Reaction Surgical History SURGICAL: Positive Section Social History SMOKING STATUS: Never smoker SECOND HAND EXPOSURE: No SUBSTANCE USE: does not use ED Exam Narrative Physical exam: GENERAL APPEARANCE: alert and oriented x 4, well-developed, well-nourished, complains of mild lower pelvic pain, no acute distress VITALS: All vitals were reviewed and the pulse ox is 100% on room air, which is normal according to my interpretation. HEENT: Normocephalic, atraumatic; pupils equal, round, reactive to light; EOMI; mucous membranes pink, moist; oropharynx clear NECK: Supple LUNGS: CTABL; no wheezes, no rales, no rhonchi HEART: Regular rate, regular rhythm; normal S1, S2; no murmurs ABDOMEN: non distended; soft, no tenderness EXTREMITIES: atraumatic; no edema NEUROLOGIC: awake; alert and oriented x4; cranial nerves II-XII grossly intact; no focal sensory or motor deficits PSYCHIATRIC: appropriate mood and affect SKIN: warm, dry, normal color; no rashes Course Quality Measures none Orders Category Date Time Status US transvaginal Stat Exams 06/05/25 21:41 Completed ABO/RH Type Stat Lab 06/05/25 22:30 Completed Beta HCG,Quantitative Stat Lab 06/05/25 22:30 Completed CBC Stat Lab 06/05/25 22:30 Completed CMP [Comprehensive Metabolic Panel] Stat Lab 06/05/25 22:30 Completed Urinalysis Stat Lab 06/06/25 00:58 Completed Vital Signs Vital signs: Vital Signs Temperature 98.4 F 06/05/25 21:35 Pulse Rate 96 06/05/25 21:35 Respiratory Rate 20 06/05/25 21:35 Blood Pressure 124/81 06/05/25 21:35 Pulse Oximetry (%) 100 06/05/25 21:35 Oxygen Delivery Method Room Air 06/05/25 21:35 Vaginal Bleeding MDM Narrative MDM Narrative: Scribe Attestation: 06/06/25 - Jennifer Saavedra am scribing for and in the presence of Dr. Bailon. 34yo female with a history of menstrual irregularity presenting with intermittent vaginal bleeding x 2-3 months. Patient reports using up to 4 pads per day and has associated abdominal cramping. Please see PE findings. Labs demonstrate a relative drop in Hgb from 11.9 to 8.6 over the course of 5 months. No thrombocytopenia. UA without evidence of infection. Chemistries unremarkable. Pelvis US demonstrates small areas of uterine fibroid degeneration, 6 month follow-up recommended. Patient remained hemodynamically stable throughout ED course and was hydrated with NS. Will refer to [facility] as patient may require endometrial ablation vs. hysterectomy. Precaution instructions issued. Dx: dysfunctional uterine bleeding, uterine fibroids, anemia from chronic blood loss Patient data External records reviewed:: [facility] previous records (Per chart review, patient was seen here on 01/09/25 for Inguinal lymphadenopathy.) Clinical information provided by:: patient Social determinants that could affect healthcare access:: none Patient has the following chronic illnesses:: none How is presenting disease/condition affected by chronic disease/condition?: no chronic disease Evaluation data The following diagnostics were reviewed and interpreted by me:: lab results and radiology exam(s) Lab and/or radiology exams considered but not ordered:: none Interpretation Summary: [facility] Report Signed Patient: MACKENZIE SON. Record#: [id number] Birthdate: 1990 Age/Sex: 34 / F [facility] Attending Dr: Ordering Physician: Benny Gonzales Date of Service: 06/05/25 Procedure(s): US transvaginal Accession Number(s): [id number] cc: Scooby Gutierrez MD; Geo Collins MD; Benny Gonzales~ Examination: Transvaginal ultrasound of the pelvis, complete Technique: Transvaginal sonographic images pelvis performed using sanchez scale imaging Exam date and time: June 05, 2025 1050 hours INDICATIONS: Vaginal bleeding episodes beginning 2 months ago FINDINGS: Uterus 8.8 cm endometrial stripe 0.6 cm 14 x 15 mm uterine area fibroid degeneration, right uterine body area fibroid degeneration 15 x 16 mm Ovaries obscured by bowel gas IMPRESSION: Small areas of uterine fibroid degeneration, 6-month follow-up pelvic sonography recommended. Dictated By: Geo Collins MD Signed By: <Electronically signed by Geo Collins MD in OV> 06/05/25 7535 Medications / Prescriptions Medications or Prescriptions considered but not ordered:: none Medication administrations:: none Consultations Consultation(s) initiated? (list below): No Diagnosis Vaginal Bleeding Differential Diagnosis: dysfunctional uterine bleeding, menometrorrhagia and vaginal bleeding Most likely diagnosis given after review of the tests above:: see clinical impression below Admission Indicated Admission indicated?: not indicated Admission Request Was there a request for admission?: No Disposition Plan Disposition Plan: Discharge Discharge Attestation Discharge Attestation: The patient and all family members were given an opportunity to ask questions and understood the discharge instructions. Discharge instructions specifically effects, indications for sooner follow up or return to the emergency department, and the expected course of current diagnosis. Patient condition: Stable Discharge Plan Plan Patient Disposition: HOME (Self Care) Discharge Disposition comment: Stable Prescriptions/Referrals Prescriptions/Med Rec: New ferrous sulfate [Feosol] 325 mg (65 mg iron) tablet 325 mg PO BID Qty: 60 0RF docusate sodium [Colace] 100 mg capsule 100 mg PO BID Qty: 30 0RF No Action omeprazole 40 mg capsule,delayed release(DR/EC) 40 mg PO DAILY Patient Comments: take 1 capsule by mouth every morning prednisone 20 mg tablet 20 mg PO DAILY Patient Comments: take 2 tablets by mouth every morning montelukast 10 mg tablet 10 mg PO HS Patient Comments: take 1 tablet by mouth every evening azelastine 137 mcg (0.1 %) spray,non-aerosol 2 spray INTRANASAL Q12H Patient Comments: instill 2 sprays into each nostril twice a day albuterol sulfate 90 mcg/actuation HFA aerosol inhaler 2 puff INHALATION Q4H PRN (Reason: shortness of breath or wheezing) Patient Comments: inhale 2 puffs by mouth and INTO THE LUNGS every 4 hours if needed amoxicillin 875 mg tablet 875 mg PO BID Qty: 20 0RF hydrocortisone 1 % cream 1 applic topical TID PRN (Reason: skin irritation) Qty: 28.4 0RF Vagisil 5-2 % cream 1 applic topical TID PRN (Reason: skin irritation) Qty: 28 0RF Referrals: Scooby Gutierrez MD [Primary Care Provider, Family Practice] - In 1 week Problem List Clinical Impression: Anemia, Uterine fibroid Patient/Caregiver Discharge Instructions Discharge Activity: activity as tolerated Other Activity Instructions:: Avoid pelvic intercourse Education Materials: Anemia, Myomectomy, ED Uterine Fibroids Additional Instructions: Increase fluids/pelvic rest/follow-up with [facility] physician to discuss evidence of fibroids and consideration of hysterectomy. In the interim we will place on iron tablets. Print Language: Swiss Stand Alone Forms: Trixie Award Info., Patient Portal Info Letter
[2025-06-06 02:37] VITALS: BP 104/70; PULSE 71; RESP 18; TEMP 37.1; O2SAT 99
== END 2025-06-06 03:00 | disposition home or self-care (01) ==
PROVIDERS: Nurse Practitioner Family; Emergency Provider Emergency Medicine; PCP Family Medicine
DX: N93.8 Other specified abnormal uterine and vaginal bleeding (principal); D25.9 Leiomyoma of uterus, unspecified; D50.0 Iron deficiency anemia secondary to blood loss (chronic); Z79.52 Long term (current) use of systemic steroids
CPT/HCPCS: 36415; 76830; 80053; 81001; 84702; 85025; 86900; 86901; 99283